=== PATIENT | female | born 1940 | race Caucasian/White ===

== ENCOUNTER 2016-12-16 13:22 | Day surgery (SDC) | payer OTHER, BC ==
[2016-12-16] MEDS ORDERED: ALPHAGAN-P OPHTH 1 DOSE AFFEYE ONE (13:40)
[2016-12-16] MEDS ORDERED: TETRACAINE 0.5% OPHTH 1 DOSE AFFEYE ONE ×2 (13:40→14:05)
[2016-12-16 13:42] VITALS: BP 114/70
== END 2016-12-16 14:18 | disposition home or self-care (01) ==
LOC: SURG1 13:22
PROVIDERS: ATTEND Ophthalmology
PROC: 08QD3ZZ Repair Left Iris, Percutaneous Approach (ICD-10-PCS; principal; 2016-12-16 23:00)
DX: H40.10X1 Unspecified open-angle glaucoma, mild stage (principal)
CPT/HCPCS: 65855

== ENCOUNTER 2016-12-30 13:24 | Day surgery (SDC) | payer OTHER, BC ==
[2016-12-30] MEDS ORDERED: TETRACAINE 0.5% OPHTH 1 DOSE AFFEYE ONE ×2 (13:30→14:55)
[2016-12-30] MEDS ORDERED: ALPHAGAN-P OPHTH 1 DOSE AFFEYE ONE (13:32)
[2016-12-30 16:09] VITALS: BP 144/87
== END 2016-12-30 15:15 | disposition home or self-care (01) ==
LOC: SURG1 13:24
PROVIDERS: ATTEND Ophthalmology
PROC: 08QC3ZZ Repair Right Iris, Percutaneous Approach (ICD-10-PCS; principal; 2016-12-30 06:45)
DX: H40.1114 Primary open-angle glaucoma, right eye, indeterminate stage (principal)
CPT/HCPCS: 65855